=== PATIENT | male | born 1975 | race Caucasian/White ===

== ENCOUNTER → 2018-04-14 | Day surgery (SDC) | payer OTHER ==
[~2018-04-14] VITALS: Ht 182.9 cm; Wt 113.5 kg
[~2018-04-14] MED LIST: ATOR10TA15 PO; CEPH-460 PO; CHLORHEXIDINE GLUCONATE 2 % 1 PACK (2 CLOTHS) TOPICAL PRN; DO NOT ADM ANY ANTICOAGULANT DRUGS PRN; HYDROmorphone HCL PF 1 MG/ML VIAL IV PRN; LACTATED RINGER'S 1000 ML INJ 1,000 ML IV ONE; LACTATED RINGER'S 1000 ML IV PRN; LIDOCAINE HCL 1% PF 5 ML SYRINGE OTHER ONE; LISI-519 PO; METOPROLOL TARTRATE 25 MG TAB PO PRN; MIDAZOLAM HCL 2 MG/2 ML VIAL ONE; ONDA4TAB7 PO; ONDANSETRON HCL 4 MG/2 ML VIAL IV PRN; PERC5TAB12 PO; POVIDONE IODINE 5% (ANTISEPSIS KIT) 4 APPLICATIONS EACH NARE PRN; PROPOFOL 200 MG/20 ML AMP IV ONE; SODIUM CHLORID 0.9% 500 ML IV PRN; ceFAZolin 1,000 MG/NS 100 ML IV SCH; traMADol HCL 50 MG TAB PO PRN
[2018-04-14 08:25] LABS: AUTOMATED NEUTROPHIL # 2.2 TH/MM3 (1.8-7.7); BASOPHIL % 0.7 % (0.0-2.0); EOSINOPHIL # 0.1 TH/MM3 (0-0.4); EOSINOPHIL % 2.1 % (0.0-4.0); HEMOGLOBIN 15.8 GM/DL (13.0-17.0); LYMPH % 46.3 % (9.0-44.0); LYMPHOCYTE # 2.3 TH/MM3 (1.0-4.8); MEAN CELL VOLUME 84.6 FL (80.0-100.0); MEAN CORPUSCULAR HGB CONC 34.2 % (32.0-36.0); MEAN PLATELET VOLUME 9.5 FL (7.0-11.0); MONOCYTE # 0.4 TH/MM3 (0-0.9); NEUT % 42.9 % (16.0-70.0); PLATELET COUNT 147 TH/MM3 (150-450); RED BLOOD COUNT 5.44 MIL/MM3 (4.50-5.90)
--- NOTE | 2018-04-14 08:45 | RADRPT ---
EXAM DATE/TIME: 04/14/2018 07:57 [facility] COMPARISON: No previous studies available for comparison. INDICATIONS : Pre op for eswl. MEDICAL HISTORY : Kiodney stone. SURGICAL HISTORY : None. ENCOUNTER: Initial ACUITY: 1 day PAIN SCORE: 0/10 LOCATION: Abdomen. FINDINGS: Calcifications are seen overlying the right kidney, largest measuring 1.9 cm. No calcifications on t he left. Bowel gas pattern unremarkable. The portion of the bony skeleton visualized is unremarkable . CONCLUSION: Left renal calcifications as above. Chandler Hinds MD FACR on April 14, 2018 at 8:41 Board Certified Radiologist. This report was verified electronically.
--- NOTE | 2018-04-14 09:14 | PD.OP ---
Operative Report Date of Surgery: April 14, 2018 Preoperative Diagnosis: Left renal calculus Postoperative Diagnosis: Same Procedure: Left extracorporeal shockwave lithotripsy Anesthesia: MAC Surgeon: Ismael Carmona Gas Singer(s): None Resident Surgeon: None Operation and Findings: 42-year-old male with findings of a 1.9 cm left renal calculus which was nonobstructing. Patient elected to undergo left extracorporeal shockwave lithotripsy. Risk and benefits were discussed preoperatively the patient was willing to proceed. Patient was brought to the operating room and identified by myself as Josué Jeronimo. He was placed on the operating room table in the supine position, received preprocedure antibiotics and MAC anesthesia was administered. Under fluoroscopic and ultrasound imaging guidance the stone was visualized. ESWL therapy commenced and the patient received a total of 2500 shocks with good fragmentation of the stone visualized under fluoroscopic imaging. The patient tolerated procedure well and was awoken and transferred to recovery room in stable condition. He will follow-up in 2 weeks and obtain a KUB x-ray prior to his appointment. He tolerated the procedure well. Ismael Carmona DO April 14, 2018 09:14
[2018-04-14 10:40] VITALS: BP 134/83; PULSE 66; RESP 18; TEMP 97.9; O2SAT 100
== END | disposition home or self-care (01) ==
LOC: HSDC 07:16
PROVIDERS: ATTEND Urology
DX: N20.0 Calculus of kidney (principal); I10 Essential (primary) hypertension; E78.5 Hyperlipidemia, unspecified; E11.9 Type 2 diabetes mellitus without complications
CPT/HCPCS: 00873; 50590; 74018; 85025; J0690; J2250; J3010; J7120

== ENCOUNTER 2018-04-17 02:06 | Inpatient (IN) | payer OTHER ==
[~2018-04-17] VITALS: Ht 180.3 cm; Wt 112.4 kg
[2018-04-17] VITALS (9 sets, daily range): BP systolic 140–169; BP diastolic 78–96; PULSE 76–107; RESP 18–20; TEMP 97.2–98.6; O2SAT 93–100
[~2018-04-17 02:06] MED LIST changes: -CEPH-460 PO; -CHLORHEXIDINE GLUCONATE 2 % 1 PACK (2 CLOTHS) TOPICAL PRN; -DO NOT ADM ANY ANTICOAGULANT DRUGS PRN; -HYDROmorphone HCL PF 1 MG/ML VIAL IV PRN; -LACTATED RINGER'S 1000 ML INJ 1,000 ML IV ONE; -LACTATED RINGER'S 1000 ML IV PRN; -LIDOCAINE HCL 1% PF 5 ML SYRINGE OTHER ONE; -METOPROLOL TARTRATE 25 MG TAB PO PRN; -MIDAZOLAM HCL 2 MG/2 ML VIAL ONE; -ONDA4TAB7 PO; -ONDANSETRON HCL 4 MG/2 ML VIAL IV PRN; -POVIDONE IODINE 5% (ANTISEPSIS KIT) 4 APPLICATIONS EACH NARE PRN; -PROPOFOL 200 MG/20 ML AMP IV ONE; -SODIUM CHLORID 0.9% 500 ML IV PRN; -ceFAZolin 1,000 MG/NS 100 ML IV SCH; -traMADol HCL 50 MG TAB PO PRN
[2018-04-17] MEDS ORDERED: SODIUM CHLOR 0.9% 1000 ML INJ 1,000 ML IV SCH ×2 (02:18→03:18)
[2018-04-17] MEDS ORDERED: SODIUM CHLORIDE 0.9% FLUSH 10 ML FLUSH IV FLUSH PRN ×3 (02:30→03:45)
[2018-04-17] MEDS ORDERED: METOCLOPRAMIDE HCL 10 MG/2 ML VIAL IV PUSH ONE (02:30)
[2018-04-17 02:52] LABS: AUTOMATED NEUTROPHIL # 7.8 TH/MM3 (1.8-7.7); BASOPHIL % 0.3 % (0.0-2.0); EOSINOPHIL % 0.3 % (0.0-4.0); HEMATOCRIT 46.2 % (39.0-51.0); HEMOGLOBIN 15.8 GM/DL (13.0-17.0); LYMPH % 12.5 % (9.0-44.0); LYMPHOCYTE # 1.2 TH/MM3 (1.0-4.8); MEAN CELL VOLUME 84.5 FL (80.0-100.0); MEAN CORPUSCULAR HGB CONC 34.3 % (32.0-36.0); MEAN PLATELET VOLUME 9.1 FL (7.0-11.0); MONO % 5.3 % (0.0-8.0); MONOCYTE # 0.5 TH/MM3 (0-0.9); NEUT % 81.6 % (16.0-70.0); PLATELET COUNT 154 TH/MM3 (150-450); RED BLOOD COUNT 5.46 MIL/MM3 (4.50-5.90); RED CELL DISTRIBUTION WIDTH 12.1 % (11.6-17.2); WHITE BLOOD COUNT 9.5 TH/MM3 (4.0-11.0)
--- NOTE | 2018-04-17 02:54 | PD ---
HPI Chief Complaint: Flank/Kidney Pain Time Seen by Provider: 02:26 Travel History International Travel<30 days: No Contact w/Intl Traveler<30days: No Traveled to known affect area: No History of Present Illness HPI Patient is a 42-year-old male who presents the emergency room for evaluation of intractable left-sided flank pain. Patient reports that he had at 1.9 cm left renal calculus which is nonobstructing. Patient elected to undergo a left extracorporeal shockwave lithotripsy on April 14, [address] Ismael Carmona. Patient reports that since his lithotripsy, he has been having intractable pain. Patient reports that he does have a high pain threshold, reports that the only thing that helped for his pain was IV Dilaudid. Patient reports that he has been taking oral Dilaudid as well as oral Percocet with no resolution of symptoms. Patient reports that since his lithotripsy, he has been diaphoretic, reports that he has been nauseous and is vomiting due to this pain. He did not call his urologist with onset of the symptoms as he thought that symptoms were just past. Patient denies any fevers or chills, reports nausea and vomiting. Patient was told to follow-up in 2 weeks for a KUB prior to his appointment. [facility] Past Medical History Narrative Medical History of kidney stones Cancer: No Cardiovascular Problems: No Diabetes: Yes Patient Takes Glucophage: No Diminished Hearing: No Endocrine: Yes Gastrointestinal Disorders: No Genitourinary: No Hepatitis: No Hiatal Hernia: No Hypertension: Yes Immune Disorder: No Kidney Stones: Yes (lithotripsy) Musculoskeletal: No Neurologic: Yes (numbness in l hand and feet at times) Psychiatric: No Reproductive: No Respiratory: No Thyroid Disease: No Tetanus Vaccination: Unknown Influenza Vaccination: No Past Surgical History AICD: No Joint Replacement: No Pacemaker: No Other Surgery: No Social History Alcohol Use: No Tobacco Use: No Substance Use: No Allergies-Medications (Allergen,Severity, Reaction): Coded Allergies: No Known Allergies (Unverified , 04/17/18) Reported Meds & Prescriptions Reported Meds & Active Scripts Active Reported Percocet (Oxycodone-Acetaminophen) 5-325 mg Tab 1 Tab PO Q4H PRN Atorvastatin (Atorvastatin Calcium) 10 Mg Tab 10 Mg PO HS Lisinopril 5 Mg Tab 5 Mg PO DAILY Review of Systems General / Constitutional: No: Fever Eyes: No: Visual changes HENT: No: Headaches Cardiovascular: No: Chest Pain or Discomfort Respiratory: No: Shortness of Breath Gastrointestinal: Positive: Nausea, Vomiting, No: Abdominal Pain Genitourinary: Positive: Flank Pain, No: Dysuria Musculoskeletal: No: Pain Skin: No Rash Neurologic: No: Weakness Psychiatric: No: Depression Endocrine: No: Polydipsia Hematologic/Lymphatic: No: Easy Bruising Physical Exam Narrative GENERAL: Patient diaphoretic on exam, uncomfortable SKIN: Focused skin assessment warm/dry. HEAD: Atraumatic. Normocephalic. EYES: Pupils equal and round. No scleral icterus. No injection or drainage. ENT: No nasal bleeding or discharge. Mucous membranes pink and moist. NECK: Trachea midline. No JVD. CARDIOVASCULAR: Regular rate and rhythm. No murmur appreciated. RESPIRATORY: No accessory muscle use. Clear to auscultation. Breath sounds equal bilaterally. GASTROINTESTINAL: Abdomen soft, non-tender, nondistended. Hepatic and splenic margins not palpable. MUSCULOSKELETAL: No obvious deformities. No clubbing. No cyanosis. No edema. Patient with left-sided flank pain NEUROLOGICAL: Awake and alert. No obvious cranial nerve deficits. Motor grossly within normal limits. Normal speech. PSYCHIATRIC: Appropriate mood and affect; insight and judgment normal. Data Data Last Documented VS Vital Signs Date Time Temp Pulse Resp B/P (MAP) Pulse Ox O2 Delivery O2 Flow Rate FiO2 04/17/18 03:39 89 18 155/88 (110) 98 Nasal Cannula 2.00 04/17/18 02:09 97.4 Orders Orders Complete Blood Count With Diff (04/17/18 02:18) Comprehensive Metabolic Panel (04/17/18 02:18) Lipase (04/17/18 02:18) Prothrombin Time / Inr (Pt) (04/17/18 02:18) Act Partial Throm Time (Ptt) (04/17/18 02:18) Urinalysis - C+S If Indicated (04/17/18 02:18) Iv Access Insert/Monitor (04/17/18 02:18) Ecg Monitoring (04/17/18 02:18) Oximetry (04/17/18 02:18) NPO (04/17/18 02:18) Sodium Chlor 0.9% 1000 Ml Inj (Ns 1000 M (04/17/18 02:18) Sodium Chloride 0.9% Flush (Ns Flush) (04/17/18 02:30) Metoclopramide Inj (Reglan Inj) (04/17/18 02:30) Ct Abd/Pel W/O Iv Contrast (04/17/18 02:32) Sodium Chloride 0.9% Flush (Ns Flush) (04/17/18 02:45) Hydromorphone Pf Inj (Dilaudid Pf Inj) (04/17/18 03:15) Sodium Chlor 0.9% 1000 Ml Inj (Ns 1000 M (04/17/18 03:18) Labs Laboratory Tests Test 04/17/18 02:30 04/17/18 02:45 White Blood Count 9.5 TH/MM3 Red Blood Count 5.46 MIL/MM3 Hemoglobin 15.8 GM/DL Hematocrit 46.2 % Mean Corpuscular Volume 84.5 FL Mean Corpuscular Hemoglobin 29.0 PG Mean Corpuscular Hemoglobin Concent 34.3 % Red Cell Distribution Width 12.1 % Platelet Count 154 TH/MM3 Mean Platelet Volume 9.1 FL Neutrophils (%) (Auto) 81.6 % Lymphocytes (%) (Auto) 12.5 % Monocytes (%) (Auto) 5.3 % Eosinophils (%) (Auto) 0.3 % Basophils (%) (Auto) 0.3 % Neutrophils # (Auto) 7.8 TH/MM3 Lymphocytes # (Auto) 1.2 TH/MM3 Monocytes # (Auto) 0.5 TH/MM3 Eosinophils # (Auto) 0.0 TH/MM3 Basophils # (Auto) 0.0 TH/MM3 CBC Comment DIFF FINAL Differential Comment Prothrombin Time 10.5 SEC Prothromb Time International Ratio 1.0 RATIO Activated Partial Thromboplast Time 33.1 SEC Blood Urea Nitrogen 12 MG/DL Creatinine 1.70 MG/DL Random Glucose 187 MG/DL Total Protein 8.0 GM/DL Albumin 4.1 GM/DL Calcium Level 9.4 MG/DL Alkaline Phosphatase 98 U/L Aspartate Amino Transf (AST/SGOT) 20 U/L Alanine Aminotransferase (ALT/SGPT) 46 U/L Total Bilirubin 1.0 MG/DL Sodium Level 136 MEQ/L Potassium Level 4.0 MEQ/L Chloride Level 100 MEQ/L Carbon Dioxide Level 28.8 MEQ/L Anion Gap 7 MEQ/L Estimat Glomerular Filtration Rate 45 ML/MIN Lipase 72 U/L Urine Color YELLOW Urine Turbidity CLOUDY Urine pH 7.5 Urine Specific [place] 1.020 Urine Protein NEG mg/dL Urine Glucose (UA) 100 mg/dL Urine Ketones 40 mg/dL Urine Occult Blood MOD Urine Nitrite NEG Urine Bilirubin NEG Urine Urobilinogen 0.2 MG/DL Urine Leukocyte Esterase NEG Urine RBC 4-9 /hpf Urine WBC 0-2 /hpf Urine Squamous Epithelial Cells 0-5 /hpf Urine Amorphous Sediment LARGE Urine Bacteria NONE /hpf Microscopic Urinalysis Comment CULT NOT INDICATED MDM Medical Decision Making Medical Screen Exam Complete: Yes Emergency Medical Condition: Yes Medical Record Reviewed: Yes Interpretation(s) Vital Signs Date Time Temp Pulse Resp B/P (MAP) Pulse Ox O2 Delivery O2 Flow Rate FiO2 04/17/18 02:40 100 Room Air 04/17/18 02:09 97.4 107 18 169/96 (120) 100 Differential Diagnosis Intractable pain, nephrolithiasis, obstruction, pyelonephritis, UTI Narrative Course 42-year-old male who presents the emergency room with complaints of intractable nausea and vomiting and left-sided flank pain, he did have a lithotripsy on April 14, [address] Carmona. Patient reports that the prescribed home pain medications are not helping with his symptoms. During the course of the patients emergency department visit, the patients history, examination, and differential diagnosis were reviewed with the patient. The patient was placed on a secured entrance monitor with oximetry and frequent blood pressure monitoring. The patient had an IV access obtained and blood work sent for analysis. The patient was initially provided IV Dilaudid, IV Reglan, IV fluids The patients laboratory studies were reviewed and remarkable for CBC & BMP Diagram 04/17/18 02:30 Total Protein 8.0, Albumin 4.1, Calcium Level 9.4, Alkaline Phosphatase 98, Aspartate Amino Transf (AST/SGOT) 20, Alanine Aminotransferase (ALT/SGPT) 46, Total Bilirubin 1.0 Radiology studies were reviewed and remarkable for Last Impressions Abdomen/Pelvis CT 04/17/18 0232 Signed Impressions: Service Date/Time: Tuesday, April 17, 2018 02:35 - CONCLUSION: 1. Left-sided obstructive uropathy with moderate hydronephrosis and numerous calculi in the left renal pelvis and left ureter as measured above. Rehan Silva MD Patient with a creatinine 1.7, patient with now a left-sided obstructive uropathy with moderate hydronephrosis and numerous calculi in the left renal pelvis and left ureter. Patient with intractable pain, patient will require admission to the hospital, plan to have urology consulted during patient's admission. case reviewed with Dr. Grace who accepts patient to her service Diagnosis Primary Impression: Hydronephrosis due to obstruction of ureter Additional Impressions: Renal insufficiency Obstruction of ureter Qualified Codes: N13.5 - Crossing vessel and stricture of ureter without hydronephrosis Admitting Information Admitting Physician Requests: Admit Roberta Venegas DO April 17, 2018 02:54
[2018-04-17 03:02] LABS: BILIRUBIN, URINE NEG (NEG); BLOOD, URINE MOD (NEG); GLUCOSE,URINE 100 mg/dL (NEG); KETONE, URINE 40 mg/dL (NEG); NITRITE,URINE NEG (NEG); PH, URINE 7.5 (5.0-8.5); URINE COLOR YELLOW (YELLW/STRAW); URINE LEUKOCYTE ESTERASE NEG (NEG)
[2018-04-17 03:05] LABS: CHLORIDE 100 MEQ/L (98-107); SODIUM (NA) 136 MEQ/L (136-145)
[2018-04-17 03:07] LABS: SQUAMOUS EPITHELIAL CELL URINE 0-5 /hpf (0-5); WBC, URINE 0-2 /hpf (0-5)
[2018-04-17 03:08] LABS: CALCIUM 9.4 MG/DL (8.5-10.1)
[2018-04-17 03:08] LABS: AMORPHOUS SEDIMENT, URINE LARGE
[2018-04-17 03:09] LABS: ALBUMIN 4.1 GM/DL (3.4-5.0); BICARBONATE 28.8 MEQ/L (21.0-32.0); BLOOD UREA NITROGEN 12 MG/DL (7-18); GLUCOSE,RANDOM 187 MG/DL (74-106); PROTHROMBIN TIME - PATIENT 10.5 SEC (9.8-11.6)
[2018-04-17 03:12] LABS: ALT (GPT) 46 U/L (12-78); AST (GOT) 20 U/L (15-37); GLOMERULAR FILTRATION RATE 45 ML/MIN (>89)
[2018-04-17 03:15] LABS: ALKALINE PHOSPHATASE 98 U/L (45-117)
[2018-04-17] MEDS ORDERED: HYDROmorphone HCL PF 0.5 MG/0.5 ML SYRINGE IV ONE (03:15)
[2018-04-17] MEDS ORDERED: HYDROmorphone HCL PF 1 MG/ML VIAL IVS ONE (03:15)
--- NOTE | 2018-04-17 03:16 | RADRPT ---
EXAM DATE/TIME: 04/17/2018 02:35 [facility] COMPARISON: No previous studies available for comparison. INDICATIONS : Left flank pain, patient had a lithotripsy three days ago. ORAL CONTRAST: No oral contrast ingested. RADIATION DOSE: 16.47 CTDIvol (mGy) MEDICAL HISTORY : Hypertension. Renal calculi. SURGICAL HISTORY : Lithotripsy. ENCOUNTER: Initial ACUITY: 3 days PAIN SCALE: 10/10 LOCATION: Left flank TECHNIQUE: Volumetric scanning of the abdomen and pelvis was performed. Using automated exposure control and ad justment of the mA and/or kV according to patient size, radiation dose was kept as low as reasonably achievable to obtain optimal diagnostic quality images. DICOM format image data is available electro nically for review and comparison. FINDINGS: There is moderate left hydronephrosis and left perinephric stranding. Tiny 1 mm nonobstructing calcul i lower pole left kidney. Small linear 2 mm calculus lying dependently in the dilated left renal pelv is. In the proximal left ureter there is a string of calculi extending over length of about 2 cm up to ab out 6 mm in diameter. At the left ureterovesical junction there are calculi measuring up to 1 cm in l ength and about 5 mm in diameter. No calculi identified within the bladder. No right renal calculi or obstructive uropathy. No acute findings in the liver, spleen, adrenals and pancreas. No calcified gallstones. Mild constipation. No acute bony abnormalities. CONCLUSION: 1. Left-sided obstructive uropathy with moderate hydronephrosis and numerous calculi in the left jacquelin l pelvis and left ureter as measured above. Rehan Silva MD on April 17, 2018 at 3:09 Board Certified Radiologist. This report was verified electronically.
[2018-04-17] MEDS ORDERED: BISACODYL 10 MG SUPP RECTAL PRN (03:45)
[2018-04-17] MEDS ORDERED: MAGNESIUM HYDROXIDE SUSP 30 ML CUP PO PRN (03:45)
[2018-04-17] MEDS ORDERED: LACTULOSE SYRUP 20 GM/30 ML CUP PO PRN (03:45)
[2018-04-17] MEDS ORDERED: ACETAMINOPHEN 325 MG TAB PO PRN (03:45)
[2018-04-17] MEDS ORDERED: SENNOSIDES 8.6 MG TAB PO PRN (03:45)
[2018-04-17] MEDS ORDERED: ACETAMINOPHEN/HYDROcodone 325 MG/5 MG TAB PO PRN (03:45)
[2018-04-17] MEDS: cefTRIAXone INJ 1,000 MG in SODIUM CHLORIDE 0.9% INJ 100 ML IV SCH (03:55)
[2018-04-17] MEDS: SODIUM CHLOR 0.9% 1000 ML INJ 1,000 ML IV SCH ×4 (03:55→18:36)
[2018-04-17] MEDS: HYDROmorphone HCL PF 0.5 MG/0.5 ML SYRINGE IV PRN ×6 (04:51→23:02)
[2018-04-17] MEDS: METOCLOPRAMIDE HCL 10 MG/2 ML VIAL IV PUSH PRN ×3 (04:52→23:04)
[2018-04-17] MEDS: SODIUM CHLORIDE 0.9% FLUSH 10 ML FLUSH IV FLUSH SCH ×2 (09:00→19:44)
[2018-04-17] MEDS: DOCUSATE SODIUM 50 MG/SENNA 8.6 MG TAB PO SCH ×2 (09:00→19:44)
[2018-04-17] MEDS: LISINOPRIL 5 MG TAB PO SCH (11:46)
--- NOTE | 2018-04-17 12:26 | HHI.HP ---
[facility] Service [place] [facility] Primary Care Physician Cici Leavitt MD Admission Diagnosis Hydronephrosis due to obstructing kidney stone, intractable pain Diagnoses: Chief Complaint: Flank pain and nausea Travel History International Travel<30 Days: No Contact w/Intl Traveler <30 Da: No Traveled to Known Affected Are: No History of Present Illness This patient is a 42-year-old gentleman who had lithotripsy done 04/14. Patient did go home and has since that time had severe intractable pain with nausea and vomiting. Patient has had Percocet at home which did not relieve his symptoms. patient was recommended for further evaluation here due to intractable pain. Pain is improved with IV Dilaudid. Apparently had a 1.9 cm left renal calculus and is now status post lithotripsy. There are some stones left in the kidney with some evidence of hydronephrosis and the patient is recommended for further urological follow-up Review of Systems Constitutional: DENIES: Diaphoretic episodes, Fatigue, Fever, Weight gain, Weight loss, Chills, Dizziness, Change in appetite, Night Sweats Eyes: DENIES: Blurred vision, Diplopia, Eye inflammation, Eye pain, Vision loss , Photosensitivity, Double Vision Ears, nose, mouth, throat: DENIES: Tinnitus, Hearing loss, Vertigo, Nasal discharge, Oral lesions, Throat pain, Hoarseness, Ear Pain, Running Nose, Epistaxis, Sinus Pain, Toothache, Odynophagia Respiratory: DENIES: Apneas, Cough, Snoring, Wheezing, Hemoptysis, Sputum production, Shortness of breath Cardiovascular: DENIES: Chest pain, Palpitations, Syncope, Dyspnea on Exertion , PND, Lower Extremity Edema, Orthopnea, Claudication Gastrointestinal: DENIES: Abdominal pain, Black stools, Bloody stools, Constipation, Diarrhea, Nausea, Vomiting, Difficulty Swallowing, Anorexia Genitourinary: DENIES: Sexual dysfunction, Urinary frequency, Urinary incontinence, Urgency, Hematuria, Dysuria, Nocturia, Penile Discharge, Testicular Pain, Testicular Swelling Musculoskeletal: DENIES: Joint pain, Muscle aches, Stiffness, Joint Swelling, Back pain, Neck pain Integumentary: DENIES: Abnormal pigmentation, Nail changes, Pruritus, Rash Hematologic/lymphatic: DENIES: Bruising, Lymphadenopathy Immunologic/allergic: DENIES: Eczema, Urticaria Neurologic: DENIES: Abnormal gait, Headache, Localized weakness, Paresthesias, Seizures, Speech Problems, Tremor, Poor Balance Psychiatric: DENIES: Anxiety, Confusion, Mood changes, Depression, Hallucinations, Agitation, Suicidal Ideation, Homicidal Ideation, Delusions Except as stated in HPI: all other systems reviewed are Neg Flank pain Past Family Social History Past Medical History Kidney stones Hyperlipidemia Hypertension Past Surgical History Status post lithotripsy Reported Medications Reviewed in the EMR, Percocet postprocedure Allergies: Coded Allergies: No Known Allergies (Unverified , 04/17/18) Active Ordered Medications Reviewed in the EMR Family History Mother has kidney stones Social History No tobacco or alcohol dependency Physical Exam Vital Signs Vital Signs Date Time Temp Pulse Resp B/P (MAP) Pulse Ox O2 Delivery O2 Flow Rate FiO2 04/17/18 07:50 97.2 76 20 145/79 (101) 94 04/17/18 05:18 90 18 97 04/17/18 05:15 98.6 84 20 140/78 (98) 93 04/17/18 04:53 90 18 160/96 (117) 97 Room Air 04/17/18 03:39 89 18 155/88 (110) 98 Nasal Cannula 2.00 04/17/18 02:40 100 Room Air 04/17/18 02:09 97.4 107 18 169/96 (120) 100 Physical Exam GENERAL: This is a well-nourished, well-developed patient, in no apparent distress. SKIN: No rashes, ecchymoses or lesions. Cool and dry. HEAD: Atraumatic. Normocephalic. No temporal or scalp tenderness. EYES: Pupils equal round and reactive. Extraocular motions intact. No scleral icterus. No injection or drainage. ENT: Nose without bleeding, purulent drainage or septal hematoma. Throat without erythema, tonsillar hypertrophy or exudate. Uvula midline. Airway patent. NECK: Trachea midline. No JVD or lymphadenopathy. Supple, nontender, no meningeal signs. CARDIOVASCULAR: Regular rate and rhythm without murmurs, gallops, or rubs. RESPIRATORY: Clear to auscultation. Breath sounds equal bilaterally. No wheezes , rales, or rhonchi. GASTROINTESTINAL: Abdomen soft, non-tender, nondistended. No hepato-splenomegaly , or palpable masses. No guarding. MUSCULOSKELETAL: Left-sided flank pain, extremities without clubbing, cyanosis, or edema. No joint tenderness, effusion, or edema noted. No calf tenderness. Negative Homans sign bilaterally. NEUROLOGICAL: Awake and alert. Cranial nerves II through XII intact. Motor and sensory grossly within normal limits. Five out of 5 muscle strength in all muscle groups. Normal speech. Laboratory Laboratory Tests Test 04/17/18 02:30 04/17/18 02:45 White Blood Count 9.5 Red Blood Count 5.46 Hemoglobin 15.8 Hematocrit 46.2 Mean Corpuscular Volume 84.5 Mean Corpuscular Hemoglobin 29.0 Mean Corpuscular Hemoglobin Concent 34.3 Red Cell Distribution Width 12.1 Platelet Count 154 Mean Platelet Volume 9.1 Neutrophils (%) (Auto) 81.6 Lymphocytes (%) (Auto) 12.5 Monocytes (%) (Auto) 5.3 Eosinophils (%) (Auto) 0.3 Basophils (%) (Auto) 0.3 Neutrophils # (Auto) 7.8 Lymphocytes # (Auto) 1.2 Monocytes # (Auto) 0.5 Eosinophils # (Auto) 0.0 Basophils # (Auto) 0.0 CBC Comment DIFF FINAL Differential Comment Prothrombin Time 10.5 Prothromb Time International Ratio 1.0 Activated Partial Thromboplast Time 33.1 Blood Urea Nitrogen 12 Creatinine 1.70 Random Glucose 187 Total Protein 8.0 Albumin 4.1 Calcium Level 9.4 Alkaline Phosphatase 98 Aspartate Amino Transf (AST/SGOT) 20 Alanine Aminotransferase (ALT/SGPT) 46 Total Bilirubin 1.0 Sodium Level 136 Potassium Level 4.0 Chloride Level 100 Carbon Dioxide Level 28.8 Anion Gap 7 Estimat Glomerular Filtration Rate 45 Lipase 72 Urine Color YELLOW Urine Turbidity CLOUDY Urine pH 7.5 Urine Specific [place] 1.020 Urine Protein NEG Urine Glucose (UA) 100 Urine Ketones 40 Urine Occult Blood MOD Urine Nitrite NEG Urine Bilirubin NEG Urine Urobilinogen 0.2 Urine Leukocyte Esterase NEG Urine RBC 4-9 Urine WBC 0-2 Urine Squamous Epithelial Cells 0-5 Urine Amorphous Sediment LARGE Urine Bacteria NONE Microscopic Urinalysis Comment CULT NOT INDICATED Result Diagram: 04/17/1822904/17/18229 Imaging Last Impressions Abdomen/Pelvis CT 04/17/18231 Signed Impressions: Service Date/Time: Tuesday, April 17, 2018 02:35 - CONCLUSION: 1. Left-sided obstructive uropathy with moderate hydronephrosis and numerous calculi in the left renal pelvis and left ureter as measured above. Rehan Silva MD Assessment and Plan Problem List: (1) Flank pain ICD Code: R10.9 - Unspecified abdominal pain Plan: She is status post lithotripsy 04/14. Continue with IV narcotics for pain IV hydration Follow-up with urology Continue antiemetics (2) HTN (hypertension) ICD Code: I10 - Essential (primary) hypertension Plan: Continue with lisinopril Follow-up likely Code Status Full code Nilda Briggs MD April 17, 2018 12:26
[2018-04-17] MEDS ORDERED: traMADol HCL 50 MG TAB PO PRN (12:30)
--- NOTE | 2018-04-17 14:19 | PD.CONS ---
HPI Service Urology Consult Requested By Reason for Consult Left hydronephrosis Primary Care Physician Cici Leavitt MD Diagnosis: (1) Flank pain ICD Code: R10.9 - Unspecified abdominal pain (2) HTN (hypertension) ICD Code: I10 - Essential (primary) hypertension History of Present Illness 42-year-old gentleman who status post shockwave lithotripsy of a left renal calculus 3 days ago by my associate Dr. Ismael Carmona. Patient presented to the emergency room with worsening left flank pain since the procedure was performed. Preliminary workup included a CT scan stone protocol that demonstrated left hydronephrosis and multiple stone fragments along the course of the left ureter. Patient was admitted for pain control and a urology consult placed. At the time of consultation the patient reported ongoing nausea with ongoing flank pain although adequately controlled with intravenous medication. Patient has been afebrile. There was no elevation of the white blood cell count. Review of Systems Constitutional: DENIES: Fever, Chills Cardiovascular: DENIES: Chest pain Gastrointestinal: DENIES: Abdominal pain Genitourinary: DENIES: Hematuria Musculoskeletal: COMPLAINS OF: Back pain (Left flank) Except as stated in HPI: all other systems reviewed are Neg Past Family Social History Past Medical History Hyperlipidemia Hypertension Past Surgical History History shockwave lithotripsy Reported Medications Refer to EMR Allergies: Coded Allergies: No Known Allergies (Unverified , 04/17/18) Active Ordered Medications Refer to EMR Family History Mother with history renal lithiasis Social History Denies tobacco, alcohol intravenous drug abuse Physical Exam Vital Signs Date Time Temp Pulse Resp B/P (MAP) Pulse Ox O2 Delivery O2 Flow Rate FiO2 04/17/18 11:00 98.0 81 20 159/95 (116) 98 04/17/18 07:50 97.2 76 20 145/79 (101) 94 04/17/18 05:18 90 18 97 04/17/18 05:15 98.6 84 20 140/78 (98) 93 04/17/18 04:53 90 18 160/96 (117) 97 Room Air 04/17/18 03:39 89 18 155/88 (110) 98 Nasal Cannula 2.00 04/17/18 02:40 100 Room Air 04/17/18 02:09 97.4 107 18 169/96 (120) 100 Physical Exam GENERAL: This is a well-nourished, well-developed patient, in no apparent distress. SKIN: No rashes, ecchymoses or lesions. Cool and dry. HEAD: Atraumatic. Normocephalic. No temporal or scalp tenderness. EYES: Pupils equal round and reactive. Extraocular motions intact. No scleral icterus. No injection or drainage. ENT: Nose without bleeding, purulent drainage or septal hematoma. Throat without erythema, tonsillar hypertrophy or exudate. Uvula midline. Airway patent. NECK: Trachea midline. No JVD or lymphadenopathy. Supple, nontender, no meningeal signs. CARDIOVASCULAR: Regular rate and rhythm without murmurs, gallops, or rubs. RESPIRATORY: Clear to auscultation. Breath sounds equal bilaterally. No wheezes , rales, or rhonchi. GASTROINTESTINAL: Abdomen soft, non-tender, nondistended. No hepato-splenomegaly , or palpable masses. No guarding. GENITOURINARY: No CVA tenderness, bladder not distended MUSCULOSKELETAL: Extremities without clubbing, cyanosis, or edema. No joint tenderness, effusion, or edema noted. No calf tenderness. Negative Homans sign bilaterally. NEUROLOGICAL: Awake and alert. Cranial nerves II through XII intact. Motor and sensory grossly within normal limits. Five out of 5 muscle strength in all muscle groups. Normal speech. Lab results reviewed: Yes Laboratory Tests Test 04/17/18 02:30 04/17/18 02:45 White Blood Count 9.5 Red Blood Count 5.46 Hemoglobin 15.8 Hematocrit 46.2 Mean Corpuscular Volume 84.5 Mean Corpuscular Hemoglobin 29.0 Mean Corpuscular Hemoglobin Concent 34.3 Red Cell Distribution Width 12.1 Platelet Count 154 Mean Platelet Volume 9.1 Neutrophils (%) (Auto) 81.6 Lymphocytes (%) (Auto) 12.5 Monocytes (%) (Auto) 5.3 Eosinophils (%) (Auto) 0.3 Basophils (%) (Auto) 0.3 Neutrophils # (Auto) 7.8 Lymphocytes # (Auto) 1.2 Monocytes # (Auto) 0.5 Eosinophils # (Auto) 0.0 Basophils # (Auto) 0.0 CBC Comment DIFF FINAL Differential Comment Prothrombin Time 10.5 Prothromb Time International Ratio 1.0 Activated Partial Thromboplast Time 33.1 Blood Urea Nitrogen 12 Creatinine 1.70 Random Glucose 187 Total Protein 8.0 Albumin 4.1 Calcium Level 9.4 Alkaline Phosphatase 98 Aspartate Amino Transf (AST/SGOT) 20 Alanine Aminotransferase (ALT/SGPT) 46 Total Bilirubin 1.0 Sodium Level 136 Potassium Level 4.0 Chloride Level 100 Carbon Dioxide Level 28.8 Anion Gap 7 Estimat Glomerular Filtration Rate 45 Lipase 72 Urine Color YELLOW Urine Turbidity CLOUDY Urine pH 7.5 Urine Specific [place] 1.020 Urine Protein NEG Urine Glucose (UA) 100 Urine Ketones 40 Urine Occult Blood MOD Urine Nitrite NEG Urine Bilirubin NEG Urine Urobilinogen 0.2 Urine Leukocyte Esterase NEG Urine RBC 4-9 Urine WBC 0-2 Urine Squamous Epithelial Cells 0-5 Urine Amorphous Sediment LARGE Urine Bacteria NONE Microscopic Urinalysis Comment CULT NOT INDICATED Result Diagram: 04/17/1822904/17/18229 Personally reviewed images: Yes Imaging Last Impressions Abdomen/Pelvis CT 04/17/18231 Signed Impressions: Service Date/Time: Tuesday, April 17, 2018 02:35 - CONCLUSION: 1. Left-sided obstructive uropathy with moderate hydronephrosis and numerous calculi in the left renal pelvis and left ureter as measured above. Rehan Silva MD Assessment and Plan Assessment and Plan Urologic impression: 1. Left hydronephrosis 2. Multiple stone fragments along the course of the left ureter related to recent shockwave lithotripsy Plan: 1. Keep patient n.p.o. after midnight 2. We will schedule patient for cystoscopy, left retrograde pyelogram and left ureteral stent placement for tomorrow morning. 3. Risks and benefits discussed with patient. Yoel Whalen MD April 17, 2018 14:19
[2018-04-17] MEDS ORDERED: ATORVASTATIN 10 MG TAB PO SCH (21:00)
[2018-04-18] VITALS: BP 151/92; PULSE 106; RESP 20; TEMP 96.7; O2SAT 95
[2018-04-18] MEDS: cefTRIAXone INJ 1,000 MG in SODIUM CHLORIDE 0.9% INJ 100 ML IV SCH (02:58)
[2018-04-18] MEDS: HYDROmorphone HCL PF 0.5 MG/0.5 ML SYRINGE IV PRN ×2 (02:58→05:55)
[2018-04-18 07:05] LABS: AUTOMATED NEUTROPHIL # 3.2 TH/MM3 (1.8-7.7); BASOPHIL % 0.4 % (0.0-2.0); EOSINOPHIL # 0.1 TH/MM3 (0-0.4); HEMATOCRIT 38.2 % (39.0-51.0); HEMOGLOBIN 13.2 GM/DL (13.0-17.0); LYMPH % 30.3 % (9.0-44.0); LYMPHOCYTE # 1.6 TH/MM3 (1.0-4.8); MEAN CELL VOLUME 84.4 FL (80.0-100.0); MEAN CORPUSCULAR HEMOGLOBIN 29.2 PG (27.0-34.0); MEAN CORPUSCULAR HGB CONC 34.6 % (32.0-36.0); MEAN PLATELET VOLUME 9.1 FL (7.0-11.0); MONOCYTE # 0.4 TH/MM3 (0-0.9); NEUT % 59.3 % (16.0-70.0); PLATELET COUNT 125 TH/MM3 (150-450); RED BLOOD COUNT 4.53 MIL/MM3 (4.50-5.90); RED CELL DISTRIBUTION WIDTH 12.4 % (11.6-17.2); WHITE BLOOD COUNT 5.3 TH/MM3 (4.0-11.0)
[2018-04-18 07:19] LABS: CHLORIDE 106 MEQ/L (98-107); SODIUM (NA) 140 MEQ/L (136-145)
[2018-04-18 07:42] LABS: ALBUMIN 3.1 GM/DL (3.4-5.0); ALKALINE PHOSPHATASE 75 U/L (45-117); ALT (GPT) 32 U/L (12-78); AST (GOT) 16 U/L (15-37); BICARBONATE 28.8 MEQ/L (21.0-32.0); BLOOD UREA NITROGEN 11 MG/DL (7-18); GLOMERULAR FILTRATION RATE 52 ML/MIN (>89); GLUCOSE,RANDOM 122 MG/DL (74-106); TOTAL BILIRUBIN ADULT 0.6 MG/DL (0.2-1.0); TOTAL PROTEIN 6.2 GM/DL (6.4-8.2)
[2018-04-18] MEDS: DOCUSATE SODIUM 50 MG/SENNA 8.6 MG TAB PO SCH (08:04)
[2018-04-18] MEDS: LISINOPRIL 5 MG TAB PO SCH (08:04)
[2018-04-18] MEDS ORDERED: fentaNYL CITRATE 250 MCG/5 ML AMP ONE (08:13)
[2018-04-18] MEDS ORDERED: MIDAZOLAM HCL 2 MG/2 ML VIAL ONE (08:37)
[2018-04-18 08:40] VITALS: BP 142/90; PULSE 84; RESP 17; TEMP 97.6; O2SAT 97
[2018-04-18] MEDS ORDERED: INSULIN HUMAN REGULAR 1,000 UNITS/10 ML VIAL SQ PRN (08:45)
[2018-04-18] MEDS ORDERED: LACTATED RINGER'S 1000 ML IV PRN (08:45)
[2018-04-18] MEDS ORDERED: CHLORHEXIDINE GLUCONATE 2 % 1 PACK (2 CLOTHS) TOPICAL PRN (08:45)
[2018-04-18] MEDS ORDERED: SODIUM CHLORID 0.9% 500 ML IV PRN (08:45)
[2018-04-18] MEDS ORDERED: POVIDONE IODINE 5% (ANTISEPSIS KIT) 4 APPLICATIONS EACH NARE PRN (08:45)
[2018-04-18] MEDS ORDERED: METOPROLOL TARTRATE 25 MG TAB PO PRN (08:45)
[2018-04-18] MEDS: SODIUM CHLORIDE 0.9% FLUSH 10 ML FLUSH IV FLUSH SCH (09:00)
--- NOTE | 2018-04-18 09:34 | PD.OP ---
Operative Report Date of Surgery: April 18, 2018 Preoperative Diagnosis: (1) Ureteral calculus, left Postoperative Diagnosis: (1) Ureteral calculus, left Procedure: Cystoscopy, left retrograde pyelogram and left ureteral stent placement Anesthesia: General Surgeon: Yoel Whalen Crankshaft Balancer(s): None Operation and Findings: Indication for procedures: Case of a pleasant 42-year-old gentleman status post recent shockwave lithotripsy of a left renal calculus who presents now with multiple obstructing left ureteral stone fragments. Operative procedures in detail: Patient was brought to the operating room suite and placed supine on the OR table. He was then placed under general anesthesia. He was then repositioned in the dorsolithotomy position and prepped and draped in normal sterile fashion. After an appropriate timeout was undertaken I proceeded with cystoscopic evaluation utilizing the rigid cystoscope with the 21 Dutch sheath and the 30 lens. Both right and left ureteral orifices were in correct anatomic position. There was clear efflux noted on the right and no drainage on the left. The left orifice was also moderately edematous. I then proceeded to pass a sensor 0.035 wire up the patient's ureter all the way into the left renal pelvis. A 6 Dutch open-ended catheter was then advanced over the wire and the wire withdrawn. A left retrograde pyelogram study was then performed to outline the collecting system. The guidewire was reintroduced and the open-ended catheter was exchanged for a inlay 6 Dutch 26 cm double-J stent. The stent was placed on the both cystoscopic and fluoroscopic guidance without difficulty. Once the stent was in proper position, the trailing string was removed. After stent placement there was some bloody drainage of urine coming from the stent and thus the decision was made to place a Yu catheter. A 16 Dutch 10 cc Yu catheter was easily placed and connected to gravity drainage. The patient tolerated the procedures without complications and was transferred to the PACU in satisfactory condition. Yoel Whalen MD April 18, 2018 09:34
[2018-04-18] MEDS ORDERED: CEPH-460 PO (09:36)
[2018-04-18] MEDS ORDERED: PERC5TAB12 PO (09:36)
[2018-04-18 10:05] VITALS: BP 138/71; PULSE 79; RESP 20; O2SAT 98
[2018-04-18] MEDS ORDERED: DO NOT ADM ANY ANTICOAGULANT DRUGS PRN (10:15)
[2018-04-18] MEDS: SODIUM CHLOR 0.9% 1000 ML INJ 1,000 ML IV SCH (10:30)
--- NOTE | 2018-04-18 10:56 | HHI.PR ---
Subjective Remarks Follow-up flank pain, left hydronephrosis. Patient seen and examined, lying in bed status post left retrograde pyelogram and left ureteral stent placement. Patient doing well, denies any pain. Denies any nausea. Vital signs are stable. Afebrile. Urology has cleared patient for discharge and follow-up in office. Labs stable today. Acute kidney injury trending down. Will have patient follow-up with PCP and urologist and repeat BMP. Patient given antibiotics as ordered per discharge as well as pain medicines and antinausea medicines. Objective Vitals Vital Signs Date Time Temp Pulse Resp B/P (MAP) Pulse Ox O2 Delivery O2 Flow Rate FiO2 04/18/18 10:05 79 20 138/71 (93) 98 Nasal Cannula 2 04/18/18 09:50 77 20 138/70 (92) 98 Nasal Cannula 2 04/18/18 09:35 97.7 77 20 128/76 (93) 89 Nasal Cannula 4 04/18/18 08:40 97.6 84 17 142/90 (107) 97 04/18/18 08:30 98.5 91 16 149/93 (111) 97 04/18/18 00:00 96.7 106 20 151/92 (111) 95 04/17/18 20:00 97.5 97 20 141/94 (110) 97 04/17/18 15:00 98.3 82 20 158/85 (109) 95 04/17/18 11:00 98.0 81 20 159/95 (116) 98 I/O 04/17/18 04/17/18 04/17/18 04/18/18 04/18/18 04/18/18 07:00 15:00 23:00 07:00 15:00 23:00 Intake Total 2400 ml 1000 ml 2440 ml 100 ml 2000 ml Output Total 270 ml Balance 2400 ml 1000 ml 2440 ml 100 ml 1730 ml Intake Oral 1440 ml 0 ml IV Total 2400 ml 1000 ml 1000 ml 100 ml 1500 ml Other 500 ml Output Urine Total 270 ml # Voids 4 3 Result Diagram: 04/18/18 0612 04/18/18 0612 Imaging Last Impressions Abdomen/Pelvis CT 04/17/18 0232 Signed Impressions: Service Date/Time: Tuesday, April 17, 2018 02:35 - CONCLUSION: 1. Left-sided obstructive uropathy with moderate hydronephrosis and numerous calculi in the left renal pelvis and left ureter as measured above. Rehan Silva MD Objective Remarks GENERAL: Well-developed, well-nourished patient in NAD. SKIN: Warm and dry. No rash. HEAD: Normocephalic. Atraumatic. EYES: Pupils equal and round. No scleral icterus. No injection or drainage. ENT: No nasal bleeding or discharge. Mucous membranes pink and moist. NECK: Supple. Trachea midline. CARDIOVASCULAR: Regular rate and rhythm. S1, S2 noted. No murmur appreciated. RESPIRATORY: No accessory muscle use. Clear to auscultation. Breath sounds equal bilaterally. GASTROINTESTINAL: Abdomen soft, non-tender, nondistended. Normoactive bowel sounds x4. : No CVA tenderness. Yu catheter in place. Will discontinue before discharge per urology orders. MUSCULOSKELETAL: No obvious deformities. Extremities without clubbing, cyanosis , or edema. NEUROLOGICAL: Awake and alert. No obvious cranial nerve deficits. Motor grossly within normal limits. 5/5 muscle strength in bilateral upper and lower extremities. Normal speech. PSYCHIATRIC: Appropriate mood and affect; insight and judgment normal. A/P Problem List: (1) Flank pain ICD Code: R10.9 - Unspecified abdominal pain Plan: Status post lithotripsy 04/14. Patient underwent left retrograde pyelogram and left ureteral stent placement today. Denies any pain. IV narcotics discontinued. Pain medications as ordered upon discharge. We will continue antibiotics by mouth. Encourage p.o. intake before discharge. Yu catheter will be removed, ensure patient voids before discharge, monitor for retention. Patient has follow-up appointment with urologist. Follow BMP upon discharge. Discharge antibiotics, pain medication and antiemetics as prescribed. (2) HTN (hypertension) ICD Code: I10 - Essential (primary) hypertension Plan: Continue with lisinopril. Blood pressure more controlled since presentation. Follow-up outpatient with PCP. Continue home lisinopril and atorvastatin. Valery Foster April 18, 2018 10:56
--- NOTE | 2018-04-18 10:57 | HHI.DCPOC ---
Discharge Care Plan Diagnosis: (1) Ureteral calculus, left (2) HTN (hypertension) (3) Obstruction of ureter (4) Hydronephrosis due to obstruction of ureter Goals to Promote Your Health * To prevent worsening of your condition and complications * To maintain your health at the optimal level Directions to Meet Your Goals Take your medications as prescribed Follow your dietary instruction Follow activity as directed Keep your appointments as scheduled Take your immunizations and boosters as scheduled If your symptoms worsen call your PCP, if no PCP go to Urgent Care Center or Emergency Room Smoking is Dangerous to Your Health. Avoid second hand smoke Call the 24-hour hour crisis hotline for domestic abuse at Valery Foster April 18, 2018 10:57
[2018-04-18] MEDS ORDERED: ONDA4TAB7 PO (10:58)
[2018-04-18] MEDS ORDERED: ONDANSETRON ODT 4 MG TAB PO ONE (11:00)
[2018-04-18] MEDS ORDERED: ONDANSETRON ODT 4 MG TAB PO PRN (11:00)
[2018-04-18] MEDS ORDERED: oxyCODONE/ACETAMINOPHEN 7.5 MG/325 MG TAB PO ONE (12:15)
== END 2018-04-18 12:32 | disposition home or self-care (01) | DRG 694 ==
LOC: PHED 02:06 → PHEDA 03:41 → PH3B 05:07
PROVIDERS: ADMIT Hospitalist; ATTEND Hospitalist
PROC: 0T778DZ Dilation of Left Ureter with Intraluminal Device, Via Natural or Artificial Opening Endoscopic (ICD-10-PCS; principal; 2018-04-18 08:55)
DX: N13.2 Hydronephrosis with renal and ureteral calculous obstruction (principal); I10 Essential (primary) hypertension; E78.5 Hyperlipidemia, unspecified
CPT/HCPCS: 74176; 74420; 76000; 80053; 81001; 83690; 85025; 85610; 85730; 96361; 96374; 96375; C1769; J0696; J1170; J2250; J2765; J3010; J7030; J7120

== ENCOUNTER → 2018-05-04 | Day surgery (SDC) | payer OTHER ==
[~2018-05-04] VITALS: Ht 180.3 cm; Wt 110.2 kg
[~2018-05-04] MED LIST changes: +*morphine SULFATE 8 MG/ML PERIprocedure ONLY ONE; +AMPICILLIN 1 GM/NS 100 ML IV SCH; +CHLORHEXIDINE GLUCONATE 2 % 1 PACK (2 CLOTHS) TOPICAL PRN; +DEXAMETHASONE SOD PHOS 4 MG/ML VIAL IV ONE; +DO NOT ADM ANY ANTICOAGULANT DRUGS PRN; +GENTAMICIN INJ 240 MG in SODIUM CHLORIDE 0.9% INJ 100 ML IV SCH; +LACTATED RINGER'S 1000 ML IV PRN; +LIDOCAINE HCL 1% PF 5 ML SYRINGE OTHER ONE; +METF500T PO; +METOPROLOL TARTRATE 25 MG TAB PO PRN; +MORPHINE SULFATE 4 MG/ML INJ IV PUSH PRN; +ONDA4TAB7 PO; +ONDANSETRON HCL 4 MG/2 ML VIAL IV ONE; +ONDANSETRON ODT 4 MG TAB PO PRN; +PHENYLEPH/NS 1000 MCG/10 ML SYR IV ONE; +POVIDONE IODINE 5% (ANTISEPSIS KIT) 4 APPLICATIONS EACH NARE PRN; +PROPOFOL 200 MG/20 ML AMP IV ONE; +SODIUM CHLORID 0.9% 500 ML IV PRN; +oxyCODONE/ACETAMINOPHEN 5 MG/325 MG TAB PO PRN
[2018-05-04 10:01] LABS: AUTOMATED NEUTROPHIL # 3.7 TH/MM3 (1.8-7.7); BASOPHIL % 0.8 % (0.0-2.0); EOSINOPHIL # 0.2 TH/MM3 (0-0.4); EOSINOPHIL % 2.6 % (0.0-4.0); HEMOGLOBIN 15.3 GM/DL (13.0-17.0); LYMPH % 31.3 % (9.0-44.0); LYMPHOCYTE # 1.9 TH/MM3 (1.0-4.8); MEAN CELL VOLUME 83.6 FL (80.0-100.0); MEAN CORPUSCULAR HEMOGLOBIN 29.1 PG (27.0-34.0); MEAN CORPUSCULAR HGB CONC 34.9 % (32.0-36.0); MONO % 5.5 % (0.0-8.0); MONOCYTE # 0.3 TH/MM3 (0-0.9); NEUT % 59.8 % (16.0-70.0); PLATELET COUNT 164 TH/MM3 (150-450); RED BLOOD COUNT 5.26 MIL/MM3 (4.50-5.90); WHITE BLOOD COUNT 6.2 TH/MM3 (4.0-11.0)
--- NOTE | 2018-05-04 12:14 | PD.OP ---
Operative Report Date of Surgery: May 04, 2018 Preoperative Diagnosis: Left renal and left ureteral calculi Postoperative Diagnosis: Same Procedure: Cystoscopy, left ureteroscopy, stone extraction from both the ureter and the kidney, left retrograde pyelogram and left double-J stent exchange Anesthesia: General LMA Surgeon: Ismael Carmona Conference Services Manager(s): None Resident Surgeon: None Operation and Findings: 42-year-old male with history of a left renal calculus who underwent left extrapleural shockwave lithotripsy in the past. Patient had residual left renal and left ureteral calculi on follow-up [facility] x-ray. Decision was made to bring the patient to the operating room to undergo cystoscopy with left ureteroscopy with possible laser lithotripsy and stone extraction with left double-J stent exchange. Risk and benefits were discussed preoperatively the patient was willing to proceed. The patient was brought to the operating room and identified by myself as Josué Jeronimo. He was placed in the dorsal lithotomy position, prepped and draped in sterile fashion, received preprocedure antibiotics and general LMA anesthesia was administered. 22 [place] cystoscope was inserted in the bladder and the left ureter stent was identified. Using the alligator grasper the stent was brought out to the urethral meatus. A 0.35 sensor wire was then passed through the stent and up into the left kidney. The stent was removed over the wire. The rigid ureteroscope was then passed along the wire up into the mid ureter and stone fragments were identified. These were grasped using the nitinol basket and removed. Once those were removed, the ureteral access sheath was passed over the wire up the mid ureter. The wire was then removed. The flexible ureteroscope was passed up through the ureteral access sheath to the area of the UPJ and's 2 stones were identified. These were both removed using the nitinol basket. The second stone was in the collecting system of the left kidney. This was removed without difficulty. A retrograde pyelogram was then performed through the scope and no filling defects were identified in the proximal ureter or in the kidney. The scope was removed from the ureteral access sheath and then the 0.35 sensor wire was then passed through the ureteral access sheath up into the kidney. The ureteral access sheath was then removed. The cystoscope was then backloaded over the wire and then a 22 cm 6 [place] left double-J stent was then left in good position with a good curl in the kidney and the bladder. The bladder was evacuated and scope was removed. The string was then taped to the suprapubic region. The patient was then awoken and transferred to the recovery room in stable condition. He tolerated the procedure well. Ismael Carmona DO May 04, 2018 12:14
[2018-05-04 14:19] VITALS: BP 136/87; PULSE 95; RESP 18; TEMP 98.1; O2SAT 96
== END | disposition home or self-care (01) ==
LOC: HSDC 09:12
PROVIDERS: ATTEND Urology
DX: N20.2 Calculus of kidney with calculus of ureter (principal); E11.9 Type 2 diabetes mellitus without complications; I10 Essential (primary) hypertension; G47.30 Sleep apnea, unspecified; E29.1 Testicular hypofunction; Z01.818 Encounter for other preprocedural examination
CPT/HCPCS: 00918; 52332; 52352; 74420; 82365; 82370; 85025; 88300; C1769; C2617; J0290; J1100; J1580; J2270; J2370; J2405; J3010; J7120